=== PATIENT | male | born 1965 | race Caucasian/White ===

== ENCOUNTER 2016-07-18 12:21 | Emergency (ER) | payer BC ==
[2016-07-18 14:42] LABS: Hematocrit 44 % (42-52); Hemoglobin 14.8 g/dl (14.0-18.0); Mean Corpuscular HGB Conc 33 g/dl (31-36); Mean Corpuscular Hemoglobin 28 pg (27-31); Mean Corpuscular Volume 85 fL (80-94); Mean Platelet Volume 7 um3 (7.4-10.4); Red Blood Count 5.21 10^6/ul (4.0-5.4); Red Cell Distribution Width 14 % (10.5-15); White Blood Count 9.1 10^3/ul (3.5-10.8)
[2016-07-18 14:53] LABS: Albumin 4.1 g/dL (3.2-5.2); BUN/Creatinine Ratio 13.5 (8-20); EGFR African American 116.8 (>60); EGFR Non-African American 90.9 (>60); Globulin 2.7 g/dL (2-4); Potassium 4.3 mmol/L (3.5-5.0); Total Bilirubin 0.4 mg/dL (0.2-1.0); Total Protein 6.8 g/dL (6.4-8.9)
[2016-07-18 15:25] LABS: Carbamazepine 6.9 mcg/mL (4.0-12.0)
[2016-07-18 15:35] LABS: Urine Bilirubin Negative (Negative); Urine Glucose Negative (Negative); Urine Nitrite Negative (Negative)
[2016-07-18] MEDS ORDERED: carBAMazepine ER TAB(*) 200 MG PO ONE ×2 (16:27→17:58)
[2016-07-18] MEDS ORDERED: carBAMazepine TAB(*) 200 MG PO ONE (17:49)
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
[2016-07-18 20:58] VITALS: BP 134/89
--- NOTE | 2016-07-18 22:04 | ED ---
Johnnie Kay Aidan, scribed for Thor Mcginnis MD on 07/18/16 at 1555 . Neurological HPI - HPI Summary HPI Summary: 51 y/o male presents to the ED with a complaint of 4 acute, moderate episodes of blank staring with associated body shakes that occurred last night and one episode this morning. He does not recall the episodes and had a seizure while in the waiting room today. His reports that, about every 30 days or so, he has similar neurological episodes of talking gibberish, blank staring, arching his body, and on one occasion, behaving violently. Episodes typically last about 2-3 minutes and occur typically when he is in bed, however, the episode this morning occurred while the patient was up eating breakfast. Before this, his last similar episode occurred a month ago and before that he had one on April 25. Previously, he tested positive for lyme, was diagnosed with tick illness, and has a Hx of encephalopathy.Again, at 1743, the patient had another seizure while in the ED. - History of Current Complaint Chief Complaint: EDNeurologicalDeficit Stated Complaint: POSS SEIZURES Time Seen by Provider: 07/18/16 13:52 Hx Obtained From: Patient, Family/Stemmer Machine - Onset/Duration: Sudden Onset, Started weeks ago Timing: Intermittent Episodes Lasting: - 2-3 minutes Onset Severity: Moderate Current Severity: None Seizure Severity: Moderate Number of Seizures: 1 - 1 reported in waiting room; unclear as to whether other episodes were seziures Neurological Deficit Location: Generalized - see HPI for detail Pain Intensity: 0 Pain Scale Used: 0-10 Numeric Character: Other: - body tremors, blank staring, talking gibberish, 1 episode of violence Episode Lasting: Seconds/Minutes - 2-3 minutes Syncope Context: Witnessed - seizure and most episodes witnessed, Loss of Consciousness: Yes Frequency: Episodes x___ - many episodes, typically around 1 every 30 days or so , at least 3 previous episodes other than yesterday's episodes and today's Syncope Location: All Extremities Seizure Character: Generalized Aggravating: Nothing - unknown Alleviating: Nothing - unknown Associated Signs and Symptoms: Positive: Seizure - today x1 TPA Considered: No Similar Episode/Dx as: Diagnosed with tick illness and encephalopathy in past - Allergy/Home Medications Allergies/Adverse Reactions: Allergies Allergy/AdvReac Type Severity Reaction Status Date / Time No Known Allergies Allergy Verified 07/18/16 12:32 Home Medications: Home Medications carBAMazepine ER TAB(*) [TEGretol Xr TAB(*)] 200 mg PO BID 07/18/16 [History Confirmed 07/18/16] PMH/Surg Hx/FS Hx/Imm Hx Infectious Disease History: No Infectious Disease History: Denies: Traveled Outside the [place] in Last 30 Days - Family History Known Family History: Positive: Hypertension - Social History Occupation: Employed Full-time Lives: With Family Alcohol Use: None Substance Use Type: Reports: None Smoking Status (MU): Unknown if Ever Smoked Review of Systems Constitutional: Negative Eyes: Negative ENT: Negative Cardiovascular: Negative Respiratory: Negative Gastrointestinal: Negative Genitourinary: Negative Musculoskeletal: Negative Skin: Negative Neurological: Other - seizure x1, episodes of body tremors, blank staring, sometimes talking gibberish, arching his body, and behaving violently on 1 occassion Negative: Headache, Weakness, Paresthesia, Numbness, Syncope, Slurred Speech Psychological: Normal All Other Systems Reviewed And Are Negative: Yes Physical Exam Triage Information Reviewed: Yes Vital Signs On Initial Exam: Initial Vitals Temp Pulse Resp BP Pulse Ox 98.8 F 90 18 147/94 98 07/18/16 12:26 07/18/16 12:26 07/18/16 12:26 07/18/16 12:26 07/18/16 12:26 Vital Signs Reviewed: Yes Appearance: Positive: Well-Appearing, No Pain Distress Skin: Positive: Warm, Skin Color Reflects Adequate Perfusion, Dry Head/Face: Positive: Normal Head/Face Inspection Eyes: Positive: Normal ENT: Positive: Normal ENT inspection Neck: Positive: Supple, Nontender Respiratory/Lung Sounds: Positive: Clear to Auscultation, Breath Sounds Present Cardiovascular: Positive: RRR Abdomen Description: Positive: Nontender, Soft Bowel Sounds: Positive: Present Musculoskeletal: Positive: Normal Neurological: Positive: Normal, Sensory/Motor Intact, Alert, Oriented to Person Place, Time, CN Intact II-III, Reflexes Intact Psychiatric: Positive: Affect/Mood Appropriate Diagnostics - Vital Signs Vital Signs Temp Pulse Resp BP Pulse Ox 07/18/16 14:30 81 14 137/86 98 07/18/16 14:00 92 13 130/89 98 07/18/16 13:42 98.3 F 90 20 111/67 95 07/18/16 13:30 89 19 11167 94 07/18/16 13:28 90 17 96 07/18/16 13:27 117/71 07/18/16 12:26 98.8 F 90 18 147/94 98 - Laboratory Lab Results: Lab Results 07/18/16 07/18/16 07/18/16 Range/Units 13:40 13:40 13:40 WBC 9.1 (3.5-10.8) 10^3/ul RBC 5.21 (4.0-5.4) 10^6/ul Hgb 14.8 (14.0-18.0) g/dl Hct 44 (42-52) % MCV 85 (80-94) fL MCH 28 (27-31) pg MCHC 33 (31-36) g/dl RDW 14 (10.5-15) % Plt Count 193 (150-450) 10^3/ul MPV 7 L (7.4-10.4) um3 Neut % (Auto) 83.8 H (38-83) % Lymph % (Auto) 8.7 L (25-47) % [place] % (Auto) 7.3 (1-9) % Eos % (Auto) 0 (0-6) % Baso % (Auto) 0.2 (0-2) % Absolute Neuts (auto) 7.7 (1.5-7.7) 10^3/ul Absolute Lymphs (auto) 0.8 L (1.0-4.8) 10^3/ul Absolute Monos (auto) 0.7 (0-0.8) 10^3/ul Absolute Eos (auto) 0 (0-0.6) 10^3/ul Absolute Basos (auto) 0 (0-0.2) 10^3/ul Absolute Nucleated RBC 0.01 10^3/ul Nucleated RBC % 0.1 Sodium 129 L (133-145) mmol/L Potassium 4.3 (3.5-5.0) mmol/L Chloride 99 L (101-111) mmol/L Carbon Dioxide 22 (22-32) mmol/L Anion Gap 8 (2-11) mmol/L BUN 12 (6-24) mg/dL Creatinine 0.89 (0.67-1.17) mg/dL Est GFR ( Amer) 116.8 (>60) Est GFR (Non-Af Amer) 90.9 (>60) BUN/Creatinine Ratio 13.5 (8-20) Glucose 104 H (70-100) mg/dL Lactic Acid 1.8 (0.5-2.0) mmol/L Calcium 9.0 (8.6-10.3) mg/dL Magnesium 2.0 (1.9-2.7) mg/dL Total Bilirubin 0.40 (0.2-1.0) mg/dL AST 20 (13-39) U/L ALT 20 (7-52) U/L Alkaline Phosphatase 72 (34-104) U/L Total Protein 6.8 (6.4-8.9) g/dL Albumin 4.1 (3.2-5.2) g/dL Globulin 2.7 (2-4) g/dL Albumin/Globulin Ratio 1.5 (1-3) Urine Color Urine Appearance Urine pH (5-9) Ur Specific [place] (1.010-1.030) Urine Protein (Negative) Urine Ketones (Negative) Urine Blood (Negative) Urine Nitrate (Negative) Urine Bilirubin (Negative) Urine Urobilinogen (Negative) Ur Leukocyte Esterase (Negative) Urine Glucose (Negative) Carbamazepine 6.9 (4.0-12.0) mcg/mL 07/18/16 Range/Units 15:20 WBC (3.5-10.8) 10^3/ul RBC (4.0-5.4) 10^6/ul Hgb (14.0-18.0) g/dl Hct (42-52) % MCV (80-94) fL MCH (27-31) pg MCHC (31-36) g/dl RDW (10.5-15) % Plt Count (150-450) 10^3/ul MPV (7.4-10.4) um3 Neut % (Auto) (38-83) % Lymph % (Auto) (25-47) % [place] % (Auto) (1-9) % Eos % (Auto) (0-6) % Baso % (Auto) (0-2) % Absolute Neuts (auto) (1.5-7.7) 10^3/ul Absolute Lymphs (auto) (1.0-4.8) 10^3/ul Absolute Monos (auto) (0-0.8) 10^3/ul Absolute Eos (auto) (0-0.6) 10^3/ul Absolute Basos (auto) (0-0.2) 10^3/ul Absolute Nucleated RBC 10^3/ul Nucleated RBC % Sodium (133-145) mmol/L Potassium (3.5-5.0) mmol/L Chloride (101-111) mmol/L Carbon Dioxide (22-32) mmol/L Anion Gap (2-11) mmol/L BUN (6-24) mg/dL Creatinine (0.67-1.17) mg/dL Est GFR ( Amer) (>60) Est GFR (Non-Af Amer) (>60) BUN/Creatinine Ratio (8-20) Glucose (70-100) mg/dL Lactic Acid (0.5-2.0) mmol/L Calcium (8.6-10.3) mg/dL Magnesium (1.9-2.7) mg/dL Total Bilirubin (0.2-1.0) mg/dL AST (13-39) U/L ALT (7-52) U/L Alkaline Phosphatase (34-104) U/L Total Protein (6.4-8.9) g/dL Albumin (3.2-5.2) g/dL Globulin (2-4) g/dL Albumin/Globulin Ratio (1-3) Urine Color Yellow Urine Appearance Cloudy Urine pH 6.0 (5-9) Ur Specific [place] 1.019 (1.010-1.030) Urine Protein Negative (Negative) Urine Ketones Trace H (Negative) Urine Blood Negative (Negative) Urine Nitrate Negative (Negative) Urine Bilirubin Negative (Negative) Urine Urobilinogen Negative (Negative) Ur Leukocyte Esterase Negative (Negative) Urine Glucose Negative (Negative) Carbamazepine (4.0-12.0) mcg/mL Result Diagrams: 07/18/16 13:40 07/18/16 13:40 Lab Statement: Any lab studies that have been ordered have been reviewed, and results considered in the medical decision making process. NIH Scale - NIH Scale Level of Consciousness: Alert/Keenly Responsive Ask Patient the Month and His/Her Age: Both Correct Ask Pt to Open/Close Eyes and Blunger Machine Operator/Release Non-Paretic Hand: Both Correctly Best Gaze (Only Horizontal Eye Movement): Partial Gaze Palsy Visual Field Testing: No Visual Loss Facial Paresis-Pt to Smile & Close Eyes or Grimace Symmetry: Normal/Symmetrical Motor Function - Right Arm: No Drift-Holds 10 Seconds Motor Function - Left Arm: No Drift-Holds 10 Seconds Motor Function - Right Leg: No Drift-Holds 10 Seconds Motor Function - Left Leg: No Drift-Holds 10 Seconds Limb Ataxia-Must be out of Proportion to Weakness Present: Absent Sensory (Use Pinprick to Test Arms/Legs/Trunk/Face): Normal Best Language (Describe Picture, Name Items): No Aphasia Dysarthria (Read Several Words): Normal Extinction and Inattention: No Abnormality Total Score: 1 Course/Dx - Course Course Of Treatment: Dr. Montalvo saw him in the ED and wanted to increase his tegretol. The patient had another seizure just prior to D/C that I witnessed. He clearly had a short complex generalized seizure. We gave him more tegretol and monitored him for a few more hours. - Diagnoses Provider Diagnoses: Seizure Discharge - Discharge Plan Condition: Stable Disposition: HOME Discharge Disposition Comment: Take tegretal 400mg 2x daily. Patient Education Materials: Recurrent Seizures in Adults (ED) Referrals: No Primary Care Phys,NOPCP [Primary Care Provider] - The documentation as recorded by the Johnnie cannon Aidan accurately reflects the service I personally performed and the decisions made by me, Thor Mcginnis MD.
== END 2016-07-18 20:50 | disposition home or self-care (01) ==
LOC: ED 12:21
DX: R56.9 Unspecified convulsions (principal)
CPT/HCPCS: 36415; 80053; 80156; 81003; 83605; 83735; 85025; 99284; A9270-GY

== ENCOUNTER 2017-10-02 12:58 | Inpatient (IN) | payer BC ==
[2017-10-02] MEDS ORDERED: LORazepam INJ* 2 MG/ML 1 ML VIAL IV PRN (14:21)
[2017-10-02] MEDS ORDERED: diPHENhydraMINE PO* 25 MG PO PRN (14:21)
--- NOTE | 2017-10-02 14:35 | ADMNOTE ---
Subjective Date of Service: 10/02/17 Interval History: ADMISSION HISTORY AND PHYSICAL EXAM: Allergies Allergy/AdvReac Type Severity Reaction Status Date / Time No Known Allergies Allergy Verified 10/02/17 14:01 Home Medications Medication Instructions Recorded Confirmed Type carBAMazepine ER TAB(*) [TEGretol 200 mg PO BID 07/18/16 07/18/16 History Xr TAB(*)] Clonazepam 0.5 mg PO PRN 10/01/17 History Loratadine 10 mg PO DAILY 10/01/17 10/02/17 History Vimpat 200 mg PO QAM 10/01/17 10/02/17 History Vimpat 250 mg PO BEDTIME 10/01/17 10/02/17 History HPI: The patient has had seizures for about 1 1/2 years with several hospitalization for this, mostly in [place]. He never had status. He has been under th care of Dr. Rudolph and is being admitted to the EMU for evaluation for possible surgical tx. Family History: Findings - F of esophageal ca, M after a CVA. 1 brother A&W, 3 children, 1 with DM 1. Social History: Findings - Lives with his who is his SDM. 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 Never smoked, quit drinking any alcohol with dx of seizures. Never a heavy drinker. Past Medical History: Findings - Seizures Review of Systems - Review of Systems Constitutional Symptoms: Negative: Weight Gain, Weight Loss, Weakness, Fatigue, Fever, Night Sweats, Unexplained Falls, Other Dermatology: Positive: Normal HEENT: Positive: Normal Eyes: Positive: Normal Thyroid: Positive: Normal Pulmonary: Positive: Normal Cardiology: Positive: Normal Gastroenterology: Positive: Normal Genital - Urinary: Positive: Normal Genitourinary - Male: Negative: Prostatism, Erectile Dysfunction, Family Hx of Prostate Cancer, Other Musculoskeletal: Negative: Joint Pain, Joint Stiffness, Arthritis, Osteoporosis, Low Back Pain , Sciatica, Joint Deformities, Kyphoscoliosis, Other Endocrinology: Positive: Normal Hematologic/Lymphatic: Negative: Anemia, Easy Brusing, Hx Leukemia, Hx Lymphoma, Use of Anticoagulant, Use of Antiplatelet Drugs, Other Neurology: Positive: Hx of Seizures Psychiatry: Positive: Normal Allergic/Immunologic: Negative: Hx Anaphylaxis, Hx Angioedema, Hx Environmental, Hx Seasonal, Athsma, Hx HIV, Immunocompromise, Swollen Glands LymphNodes, Other Objective Active Medications: Diphenhydramine HCl (Benadryl Po*) 25 mg PO Q6H PRN PRN Reason: ITCHING Lorazepam (Ativan Inj*) 1 mg IV Q8H PRN PRN Reason: Generalized Tonic Clonic Seizu Non-Formulary Medication (Loratadine) 10 mg PO DAILY LANCE Non-Formulary Medication (Vimpat) 150 mg PO QAM LANCE Non-Formulary Medication (Vimpat) 150 mg PO BEDTIME LANCE Oxygen Devices in Use Now: None Appearance: Alert, sitting on the edge of his bed. In good spirits. Looks comfortable. Eyes: No Scleral Icterus Ears/Nose/Mouth/Throat: Clear Oropharnyx, Mucous Membranes Moist Neck: NL Appearance and Movements; NL JVP, No Thyroid Enlargement, Masses Respiratory: Symmetrical Chest Expansion and Respiratory Effort, Clear to Auscultation, Clear to Percussion Cardiovascular: NL Sounds; No Murmurs; No JVD, RRR, No Edema, - Abdominal: NL Sounds; No Tenderness; No Distention, No Hepatosplenomegaly, - Extremities: No Edema, No Clubbing, Cyanosis, - Skin: No Rash or Ulcers, No Nodules or Sclerosis, - Neurological: Alert and Oriented x 3, NL Sensation Assess/Plan/Problems-Billing Assessment: - Patient Problems (1) Seizures Current Visit: Yes Status: Acute Code(s): R56.9 - UNSPECIFIED CONVULSIONS SNOMED Code(s): 06396628 Comment: Admitted to EMU for evaluation for possible surgical tx. Discussed with Dr. Rudolph. Vimpat dose reduced approx. 50% from home dose. Further reductions depending on clinical course. (2) Allergic rhinitis Current Visit: Yes Status: Acute Code(s): J30.9 - ALLERGIC RHINITIS, UNSPECIFIED SNOMED Code(s): 97255137 Comment: Continue loratadine.
--- NOTE | 2017-10-02 15:55 | ADMNOTE ---
Admission Note HPI - HPI Handedness: right History of Present Illness: Ramon Hannah is a 52 year old man who began having probable seizures in August 2015. This occurred in the context of flu-like symptoms but no fever. He initially was noted to have episodes of odd behavior such as standing on the couch, being non-responsive to his and being unable to speak after wandering out onto their deck. He was initially taken to [facility] and had overnight monitoring in the ICU with EEG that was normal. He underwent LP, which was normal. He was discharged the following day and was fine for a month but then had an episode where his described him swiping at a notebook as though it was his phone. This was associated with him staring off and sweating. He had a temperature of 100F that night. That night, he had episodes of kicking and jerking in his sleep, speaking jibberish and agitated behavior such as crawling over his and onto their bedroom floor. He was again taken to [facility] and was confused while there. He was discharged after 3 days, but was still confused, and had an episode the following day of looking for their son in a closet. He was also paranoid at that time. They went to the ER in [place], [place] and spent 5 days in the hospital. This was October 2015. He was put on doxycycline for possible Lyme disease, which did not help these episodes. Through the course of the summer and fall of 2015, he received an extended course of antibiotics for possible Lyme disease. He was finally started on carbamazepine in April 2016 and episodes were less frequent, but still occurring. In May 2016 he had an episode of repetitive swallowing, jibberish speech and shaking associated with staring. He was changed to extended release carbamazepine. Due to further events in June 2016, he presented to the [facility] ER and was seen by Dr. Montalvo, who increased the dose of carbamazepine to 400mg BID with the suspicion that these could be frontal lobe seizures. He was then referred to me for further evaluation. Over time, the dose of carbamazepine was increased but then discontinued due to hyponatremia, photosensitivity and incomplete seizure control. He was then started on zonisamide but experienced weight loss, appetite loss and insomnia. He is now on Vimpat and the dose has been progressively increased to the current dose of 200mg QAM and 250mg QPM. He continues to experiences seizures every 4 to 5 weeks and if his does not given him clonazepam, he will tend to have another 1 to 2 seizures later in the day. His seizures occur almost exclusively out of sleep, and can happen overnight or when he naps. The last daytime seizure was in August 2016. He has not been able to drive because of the seizures, though a DMV form was recently completed detailing the nocturnal nature of his seizures. 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 His mood has changed since the onset of seizures and he does not tend to have as much interest in things like his hobbies of turkey hunting, but it's also more difficult to get there because he cannot drive. His short-term memory has been a bit worse since this started but it has not affected his work and his has not noticed this to a great degree. The last seizure occurred on 09/27 in the patient registration clerk hours and his gave him clonazepam. She videotaped one recently and he watched it. He states he was staring, wide-eyed, making repeated vocalizations and appeared stiff and shaking , but he could only see his upper body. It lasted less than a minute. He does not have any warning prior to seizures and does not really know when he's had one after the fact unless his tells him. Last week, he suddenly felt lightheaded and sweaty, like he might faint, but he did not tell his and he wondered if this could have been a prodrome to a seizure. Epilepsy Risk Factors: No h/o febrile seizures, normal developmental history. Isn't sure if there were complications during his mother's with him. No known major head injuries. No clear h/o [employer] infections but in his work up for these events he had an encephalitis panel in July 2016 which showed that he has potentially had prior infection with a [place] serogroup arbovirus at an undetermined time. CSF paraneoplastic panel was negative. Maternal grandfather had "spells", the details of which are unknown PNEA Risk Factors: None PMH/Surg Hx/FS Hx/Imm Hx Respiratory History: Reports: Hx Seasonal Allergies Musculoskeletal History: Denies: Hx Arthritis, Hx Osteoporosis Sensory History: Reports: Hx Contacts or Glasses Denies: Hx Hearing Aid Opthamlomology History: Reports: Hx Contacts or Glasses Neurological History: Reports: Hx Seizures Denies: Hx Developmental Delay - Surgical History Surgery Procedure, Year, and Place: Sinus surgery - 2002. [place] teeth removed - 1987. Vasectomy - 2004 Hx Anesthesia Reactions: No Infectious Disease History: No Infectious Disease History: Denies: Traveled Outside the [place] in Last 30 Days - Family History Known Family History: Positive: Hypertension Family History: father - cancer. mother - stroke. 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 MSK: no extremity deformities Derm: no rashes or lesions on visible skin Neurological Exam: Mental Status: Awake and alert. Oriented to person, place, and time. Fluent. Comprehension intact. Affect appropriate. Cranial Nerves: Visual daniels not tested. Versions were full and without nystagmus. Facial musculature symmetric. Hearing grossly intact to voice. Shoulder shrug was symmetric. Motor: Strength was grossly normal throughout. Pronator drift was absent. There were no abnormal movements. Sensory: Sensation not tested Coordination: Finger to nose intact. Reflexes: not tested. Gait: Not observed today. EMU Review of Systems Review of Systems: A 12 point review of systems was completed and significantly positive for: nothing. The remainder of the review was negative except as stated above in the HPI. EMU Diagnostics - Diagnostic Most Recent Vital Signs: Vital Signs: Temp Pulse Resp BP Pulse Ox 18 10/02/17 14:18 Lab Results: [place] CSF paraneoplastic panel negative Serum arbovirus panel showed possible prior infection with [place] serogroup Interim video-EEG long-term monitoring report: multiple outside routine EEGs and one 72 hour ambulatory EEG interpreted as normal. Radiology Impressions: MRI August 2015: few non-specific white matter abnormalities, though some are juxtacortical. PCP got MRI with contrast some time later which did not show evidence of enhancement. EMU Assessment/Plan - Assessment/Plan Assessment/Plan: 52 year old man with spells of wide-eyed staring, repetitive swallowing, speaking jibberish and sometimes abnormal movements since August 2015 which have been partially responsive to Vimpat. These are suspected to be focal seizures, temporal versus frontal in nature, given the report of agitated behavior. Etiology is unclear but not that a serum arbovirus panel showed evidence of prior infection with a [place] serogroup. MRI does not show a culprit lesion , though some of the non-specific white matter abnormalities are juxtacortical. Given that he has had incomplete control with 2 antiseizure medications ( carbamazepine and lacosamide) at reasonable doses/levels, he is being admitted for long-term monitoring both for characterization/localization and pre- surgical evaluation. The goal of the present long term care social worker video/EEG monitoring session is to characterize these events and to evaluate the EEG for epileptiform activity. Plan: Admit to the Medicine Service, Dr. Vargas attending with Dr Rudolph consulting detention video EEG monitoring for the purpose of characterizing events above Seizure precautions IV lorazepam as needed for GTC Home AED regimen: Vimpat 200mg QAM and 250mg QPM - decrease Vimpat to 150mg tonight and 100mg tomorrow morning. Continue on other prescribed home medications. * Check EKG given patient on stable dose of Vimpat
[2017-10-02] MEDS ORDERED: LaCOSAMide TAB* 150 MG TAB PO SCH (21:00)
--- NOTE | 2017-10-03 08:55 | EEG ---
GROUP HOME VIDEO/EEG MONITORING - Monitoring Monitoring Start Date: 10/02/17 Current Monitoring Session: 10/02/17 - 10/09/17 EEG Clinical Indication: This is a 52 year old man who began having events concerning for focal seizures in August 2015, following flu-like symptoms without high fever. Events occur almost exclusively out of sleep and consist of wide-eyed staring, repeated swallowing, speaking jibberish and sometimes abnormal movements (agitated movement). These are occurring about once every 4 to 5 weeks. They have been partially responsive to treatment with carbamazepine and now Vimpat, but continue to occur. Previous EEGs have been normal and MRI is normal. Long-term video EEG is undertaken in order to localize these events and evaluate for surgical candidacy. Introduction: INTRODUCTION: The EEG was monitored from 21 scalp electrodes. Nineteen electrodes consisted of the standard parasagittal, temporal and midline leads of the International 10 -20 system. In addition, special electrodes T1 and T2 were placed. EEG data were recorded on an [employer] system with simultaneous MPEG-4 digital video recording of patient behavior. EEG recording was in a monopolar montage with all electrodes referenced to FCz. Significant behavioral events were signaled by an event button, or putative electrical seizure events were detected by a computer program. All EEG data were reviewed in their entirety on a monitor with reconstruction of montages and adjustments of sensitivity and filtering. Simultaneous patient behavior was viewed on an adjacent monitor and correlated with the EEG. - Medications Active Medications: Diphenhydramine HCl (Benadryl Po*) 25 mg PO Q6H PRN PRN Reason: ITCHING Lacosamide (Vimpat) 150 mg PO BEDTIME [facility] Last Admin: 10/02/17 20:58 Dose: 150 mg Lacosamide (Vimpat Tab*) 100 mg PO QAM LANCE Loratadine (Claritin Tab(Nf)) 10 mg PO DAILY LANCE Lorazepam (Ativan Inj*) 1 mg IV Q8H PRN PRN Reason: Generalized Tonic Clonic Seizu - Description Background: The waking background showed appropriate organization with clearly defined anterior-posterior voltage and frequency gradients. There was a defined posterior dominant rhythm of 10 Hertz, which was symmetrical and showed normal reactivity. Anteriorly, there was the expected pattern of lower voltage and more irregular theta and beta rhythms. There was rare, polymorphic mixed frequency slowing in the right temporal region , maximal at F8 and T2, with intermixed sharp features which were not definitively epileptiform. The sleep background was appropriately organized with well-developed spindles and vertex waves indicative of stage 2 sleep. These sleep transients showed appropriate morphology and were bilaterally synchronous and symmetrical. Development of diffuse delta range frequencies with dropout of stage 2 architecture accompanied transition to slow wave sleep, and a lower voltage mixed frequency pattern associated with eye movements was consistent with REM sleep. Intericatal Epileptiform Activity: #01 10/02: Medications: lacosamide 150mg at HS and 100mg in AM There was rare, polymorphic mixed frequency slowing in the right temporal region , maximal at F8 and T2, with intermixed sharp features which were not definitively epileptiform. Background otherwise normal. No definitive discharges #02 10/03: Medications: lacosamide 75mg at HS, 50mg in AM Background the same with occasional polymorphic slowing in the right frontotemporal region. During sleep, there are occasional low voltage spikes which are bifrontally predominant but biased to the right and into the right temporal region. Unclear if these are low voltage discharges. There was significant artifact in T3 overnight and T1 came off around 03:30. No seizures #03 10/04: Medications: none after 50mg dose in AM Background the same with occasional polymorphic slowing in the right frontotemporal region. During sleep, there are occasional low voltage spikes which are bifrontally predominant but biased to the right and into the right temporal region. Unclear if these are low voltage discharges. Slept 5.5 to 6 hours #04 10/05: Medications: none Background same as previously described above. Sleep deprived 10/05 to 10/06 to 4 hours #05 10/06: Medications: none Background same as previously described above including occasional low voltage spikes in the frontal and right temporal region during sleep. #06 10/07: Medications: none Background same as previously described above including occasional low voltage spikes in the frontal and right temporal region during sleep. During sleep there was a single 3 second epoch of rhythmic, sharply contoured 3-4 Hz slowing in the right frontal/temporal region, maximal at FP2, F8 and T2/FT10. #07 10/08: Medications: Vimpat 250mg at HS and 200mg AM on 10/09 Background same as previously described above including occasional low voltage spikes in the frontal and right temporal region during sleep. Sometimes these seem to shift and show a predominance in the left temporal rather than right temporal region. Also noted to have a positive dipole in the occipital regions. Not clearly epileptiform. Ictal Activity: #01 10/02: No patient events, no seizures #02 10/03: No patient events, no seizures #03 10/04: No patient events, no seizures #04 10/05: No patient events, no seizures #05 10/06: No patient events, no seizures #06 10/07: No patient events, no seizures #07 10/08: No patient events, no seizures - Impression Impression: This is a mildly abnormal long-term video EEG session due to the presence of rare, polymorphic slowing in the right frontotemporal region with intermixed sharp contours which are not definitively epileptiform. These findings are suggestive of intermittent neuronal dysfunction underlying this region. During stage 2 sleep, there were low voltage spike waveforms as described above which were bifrontally predominant and often represented in the right temporal region as well, but sometimes shifted to the left temporal region. These were not definitively epileptiform and their significance is uncertain. The patient did not experience any of his typical events during this recording so the exact localization and characterization of these events remains uncertain.
[2017-10-03] MEDS: CMCS LoraTADine TAB(NF) 10 MG TAB PO SCH (08:59)
[2017-10-03] MEDS ORDERED: VIMPAT 150 MG PO SCH (09:00)
[2017-10-03] MEDS ORDERED: Lacosamide TAB* 100 MG TAB PO SCH (09:00)
--- NOTE | 2017-10-03 10:11 | PN ---
Epilepsy Service Progress Note Date of Service: 10/03/17 - Subjective No overnight events. Pt did not sleep very well, but has trouble sleeping at home as well. Feels weird having to call someone before he goes to the bathroom but understands the reason in terms of safety - Medications Active Medications: Diphenhydramine HCl (Benadryl Po*) 25 mg PO Q6H PRN PRN Reason: ITCHING Lacosamide (Vimpat Tab*) 75 mg PO BEDTIME ONE Stop: 10/03/17 21:01 Lacosamide (Vimpat Tab*) 50 mg PO 0900 ONE Stop: 10/04/17 09:01 Loratadine (Claritin Tab(Nf)) 10 mg PO DAILY LANCE Last Admin: 10/03/17 08:59 Dose: 10 mg Lorazepam (Ativan Inj*) 1 mg IV Q8H PRN PRN Reason: Generalized Tonic Clonic Seizu EMU Diagnostics - Diagnostic Most Recent Vital Signs: Vital Signs: Temp Pulse Resp BP Pulse Ox 97.8 F 67 18 121/73 99 10/03/17 07:48 10/03/17 07:48 10/03/17 08:00 10/03/17 07:48 10/03/17 07:48 Interim video-EEG long-term monitoring report: #01 10/02: PDR 10. Background shows normal organization. At the beginning of the recording, there was occasional polymorphic slowing in the right frontotemporal region with some sharp contours which were not definitively epileptiform. No discharges, no seizures EMU Exam - Exam Physical/Neurological Exam: Physical Exam: General: Well appearing in no acute distress. MSK: no extremity deformities Derm: no rashes or lesions on visible skin Neurological Exam: Mental Status: Awake and alert. Oriented to person, place, and time. Fluent. Comprehension intact. Affect appropriate. Cranial Nerves: Visual daniels not tested. Spontaneous versions were full and without nystagmus. Facial musculature symmetric. Hearing grossly intact to voice. Shoulder shrug was symmetric. Motor: Strength was grossly normal throughout. Pronator drift was absent. There were no abnormal movements. Sensory: Sensation not tested Coordination: Finger to nose intact. Reflexes: not tested. Gait: Not observed today. EMU Progress Note Assessment/P - Assessment/Plan Assessment: 52 year old man with onset of probable focal seizures in August 2015, refractory to treatment with carbamazepine followed by Vimpat. MRI is non-lesional. He continues to experience events every 4 to 5 weeks of wide-eyed staring, repetitive swallowing, speaking jibberish and sometimes agitated movements. These are primarily nocturnal. Long-term video EEG undertaken in order to characterize these as epileptic and evaluate for surgical candidacy. No typical events recorded yet. Plan: * Continue manager long term care video EEG monitoring to capture typical episodes * Seizure precautions * lorazepam 1mg IV prn GTC * reduce Vimpat to 75mg tonight, 50mg tomorrow AM and then d/c * continue other home meds * reinforced to call for nursing before ambulating * EKG to be completed
--- NOTE | 2017-10-03 10:11 | PN ---
Subjective Date of Service: 10/03/17 Interval History: Pt is feeling well. No seizures overnight per nursing. He denies any pain, SOB or issues with bowel/bladder. Currently we are awaiting seizure activity. Objective Active Medications: Diphenhydramine HCl (Benadryl Po*) 25 mg PO Q6H PRN PRN Reason: ITCHING Lacosamide (Vimpat Tab*) 75 mg PO BEDTIME ONE Stop: 10/03/17 21:01 Lacosamide (Vimpat Tab*) 50 mg PO 0900 ONE Stop: 10/04/17 09:01 Loratadine (Claritin Tab(Nf)) 10 mg PO DAILY LANCE Last Admin: 10/03/17 08:59 Dose: 10 mg Lorazepam (Ativan Inj*) 1 mg IV Q8H PRN PRN Reason: Generalized Tonic Clonic Seizu Vital Signs - 8 hr 10/03/17 10/03/17 07:48 08:00 Temperature 97.8 F Pulse Rate 67 Respiratory 18 Rate Blood Pressure 121/73 (mmHg) O2 Sat by Pulse 99 Oximetry Oxygen Devices in Use Now: None Appearance: Middle aged male sitting up on a couch, using his iPad, NAD Eyes: No Scleral Icterus Ears/Nose/Mouth/Throat: Mucous Membranes Moist Respiratory: Symmetrical Chest Expansion and Respiratory Effort, Clear to Auscultation Cardiovascular: NL Sounds; No Murmurs; No JVD, RRR, No Edema Abdominal: NL Sounds; No Tenderness; No Distention Extremities: No Clubbing, Cyanosis Skin: No Nodules or Sclerosis Neurological: Alert and Oriented x 3 Assess/Plan/Problems-Billing Mr Hannah is a 52 yo M who has a 2 year history of spells that are comprised of wide eyed starring, repetitive swallowing, speaking jibberish and sometimes abnormal movements who was admitted to the EMU for both characterization/ localization and pre-surgical evaluation. - Patient Problems (1) Seizures Current Visit: Yes Status: Acute Code(s): R56.9 - UNSPECIFIED CONVULSIONS SNOMED Code(s): 06134390 Comment: Vimpat dose to be reduced further; 75mg tonight and 50mg tomorrow AM then stop. Await seizure activity. PRN ativan available for generalized tonic clonic seizure activity. No issues to this point per nursing. (2) Allergic rhinitis Current Visit: Yes Status: Acute Code(s): J30.9 - ALLERGIC RHINITIS, UNSPECIFIED SNOMED Code(s): 54254494 Comment: Continue loratadine. (3) DVT prophylaxis Current Visit: Yes Status: Acute Code(s): [id number] - SNOMED Code(s): 542039801 Comment: ambulation (4) Full code status Current Visit: Yes Status: Acute Code(s): Z78.9 - OTHER SPECIFIED HEALTH STATUS SNOMED Code(s): 606609342
[2017-10-03] MEDS ORDERED: Lacosamide TAB* 50 MG TAB PO ONE (21:00)
[2017-10-04] MEDS ORDERED: Ibuprofen TAB* 400 MG PO PRN (08:13)
[2017-10-04] MEDS ORDERED: Acetaminophen TAB* 325 MG PO PRN (08:14)
--- NOTE | 2017-10-04 08:16 | PN ---
Subjective Date of Service: 10/04/17 Interval History: No seizures overnight. Ramon is feeling ok this AM. He states his back is a little sore from just sitting on the couch or in the bed. He states he would ordinarily take ibuprofen for the discomfort. He has no other complaints. Objective Active Medications: Diphenhydramine HCl (Benadryl Po*) 25 mg PO Q6H PRN PRN Reason: ITCHING Ibuprofen (Motrin Tab*) 400 mg PO Q6H PRN PRN Reason: PAIN Lacosamide (Vimpat Tab*) 50 mg PO 0900 ONE Stop: 10/04/17 09:01 Loratadine (Claritin Tab(Nf)) 10 mg PO DAILY LANCE Last Admin: 10/03/17 08:59 Dose: 10 mg Lorazepam (Ativan Inj*) 1 mg IV Q8H PRN PRN Reason: Generalized Tonic Clonic Seizu Vital Signs - 8 hr 10/04/17 07:56 Temperature 98.0 F Pulse Rate 76 Blood Pressure 124/72 (mmHg) O2 Sat by Pulse 99 Oximetry Oxygen Devices in Use Now: None Appearance: Middle aged male sitting on the couch eating breakfast, NAD Eyes: No Scleral Icterus Ears/Nose/Mouth/Throat: Mucous Membranes Moist Respiratory: Symmetrical Chest Expansion and Respiratory Effort, Clear to Auscultation Cardiovascular: NL Sounds; No Murmurs; No JVD, RRR, No Edema Abdominal: NL Sounds; No Tenderness; No Distention Extremities: No Clubbing, Cyanosis Skin: No Nodules or Sclerosis Neurological: Alert and Oriented x 3 Assess/Plan/Problems-Billing Mr Hannah is a 52 yo M who has a 2 year history of spells that are comprised of wide eyed starring, repetitive swallowing, speaking jibberish and sometimes abnormal movements who was admitted to the EMU for both characterization/ localization and pre-surgical evaluation. - Patient Problems (1) Seizures Current Visit: Yes Status: Acute Code(s): R56.9 - UNSPECIFIED CONVULSIONS SNOMED Code(s): 66599726 Comment: Pt will receive his last dose of vimpat this AM then be off. Await seizure activity. PRN ativan available for GTC. No isuses per nursing. (2) Allergic rhinitis Current Visit: Yes Status: Acute Code(s): J30.9 - ALLERGIC RHINITIS, UNSPECIFIED SNOMED Code(s): 27713759 Comment: Continue loratadine. (3) DVT prophylaxis Current Visit: Yes Status: Acute Code(s): [id number] - SNOMED Code(s): 743042862 Comment: ambulation (4) Full code status Current Visit: Yes Status: Acute Code(s): Z78.9 - OTHER SPECIFIED HEALTH STATUS SNOMED Code(s): 276045713
[2017-10-04] MEDS: CMCS LoraTADine TAB(NF) 10 MG TAB PO SCH (08:50)
[2017-10-04] MEDS ORDERED: Lacosamide TAB* 50 MG TAB PO ONE (09:00)
--- NOTE | 2017-10-04 11:56 | PN ---
Epilepsy Service Progress Note Date of Service: 10/04/17 - Subjective No overnight events. He had a hard time falling back to sleep after waking around 3:30 and didn't get back to sleep till almost 5:00. Says this can happen at home as well. Anxious to have a seizure. Got last dose of Vimpat this AM. He has some back pain today - Medications Active Medications: Acetaminophen (Tylenol Tab*) 650 mg PO Q4H PRN PRN Reason: PAIN Diphenhydramine HCl (Benadryl Po*) 25 mg PO Q6H PRN PRN Reason: ITCHING Ibuprofen (Motrin Tab*) 400 mg PO Q6H PRN PRN Reason: PAIN Last Admin: 10/04/17 08:48 Dose: 400 mg Loratadine (Claritin Tab(Nf)) 10 mg PO DAILY LANCE Last Admin: 10/04/17 08:50 Dose: 10 mg Lorazepam (Ativan Inj*) 1 mg IV Q8H PRN PRN Reason: Generalized Tonic Clonic Seizu EMU Diagnostics - Diagnostic Most Recent Vital Signs: Vital Signs: Temp Pulse Resp BP Pulse Ox 98.0 F 76 16 124/72 99 10/04/17 07:56 10/04/17 07:56 10/04/17 09:35 10/04/17 07:56 10/04/17 07:56 EKG normal Interim video-EEG long-term monitoring report: #01 10/02: PDR 10. Background shows normal organization. At the beginning of the recording, there was occasional polymorphic slowing in the right frontotemporal region with some sharp contours which were not definitively epileptiform. No discharges, no seizures #02 10/03: Background the same with occasional polymorphic slowing in the right frontotemporal region. During sleep, there are occasional low voltage spikes which are bifrontally predominant but biased to the right and into the right temporal region. Unclear if these are low voltage discharges. There was significant artifact in T3 overnight and T1 came off around 03:30. No seizures EMU Exam - Exam Physical/Neurological Exam: Physical Exam: General: Well appearing in no acute distress. MSK: no extremity deformities Derm: no rashes or lesions on visible skin Neurological Exam: Mental Status: Awake and alert. Oriented to person, place, and time. Fluent. Comprehension intact. Affect appropriate. Cranial Nerves: Visual daniels not tested. Spontaneous versions were full and without nystagmus. Facial musculature symmetric. Hearing grossly intact to voice. Shoulder shrug was symmetric. Motor: Strength was grossly normal throughout. Pronator drift was absent. There were no abnormal movements. Sensory: Sensation not tested Coordination: Finger to nose intact. Reflexes: not tested. Gait: Not observed today. EMU Progress Note Assessment/P - Assessment/Plan Assessment: 52 year old man with onset of probable focal seizures in August 2015, refractory to treatment with carbamazepine followed by Vimpat. MRI is non-lesional. He continues to experience events every 4 to 5 weeks of wide-eyed staring, repetitive swallowing, speaking jibberish and sometimes agitated movements. These are primarily nocturnal. Long-term video EEG undertaken in order to characterize these as epileptic and evaluate for surgical candidacy. No typical events recorded yet. Plan: * Continue intermodal dispatcher video EEG monitoring to capture typical episodes * Seizure precautions * lorazepam 1mg IV prn GTC * d/c Vimpat after 50mg dose this AM * sleep deprive to 4 hours tonight. Pt will likely stay up late, get up normal time. * continue other home meds * ibuprofen and/or Tylenol prn back pain. Ok to walk around room with nursing present * EKG done, normal
[2017-10-05] MEDS: CMCS LoraTADine TAB(NF) 10 MG TAB PO SCH (09:49)
--- NOTE | 2017-10-05 12:24 | PN ---
Epilepsy Service Progress Note Date of Service: 10/05/17 - Subjective No overnight events. Patient was unfortunately not properly sleep-deprived last night and got between 5.5 and 6 hours of sleep. He states he feels "goofy" but thinks this might be due to coming off Vimpat. Asks if he still needs to let someone know when he needs to use the bathroom. His sent him the video of one of his recent seizures. I reviewed this. In it, he was lying in the prone position on their bed, eyes wide open, face turned toward the right and up slightly, right arm only visible and was flexed under his body. He appeared rigid and had low amplitude somewhat irregular shaking. Afterward, he took some deep breaths with a slight snort/snoring quality and began to close his eyes. He was not responsive to his calling his name. - Medications Active Medications: Acetaminophen (Tylenol Tab*) 650 mg PO Q4H PRN PRN Reason: PAIN Diphenhydramine HCl (Benadryl Po*) 25 mg PO Q6H PRN PRN Reason: ITCHING Ibuprofen (Motrin Tab*) 400 mg PO Q6H PRN PRN Reason: PAIN Last Admin: 10/04/17 08:48 Dose: 400 mg Loratadine (Claritin Tab(Nf)) 10 mg PO DAILY LANCE Last Admin: 10/05/17 09:49 Dose: 10 mg Lorazepam (Ativan Inj*) 1 mg IV Q8H PRN PRN Reason: Generalized Tonic Clonic Seizu EMU Diagnostics - Diagnostic Most Recent Vital Signs: Vital Signs: Temp Pulse Resp BP Pulse Ox 97.3 F 79 18 117/73 98 10/04/17 19:10 10/05/17 07:53 10/05/17 10:59 10/05/17 07:53 10/05/17 07:53 Interim video-EEG long-term monitoring report: #01 10/02: PDR 10. Background shows normal organization. At the beginning of the recording, there was occasional polymorphic slowing in the right frontotemporal region with some sharp contours which were not definitively epileptiform. No discharges, no seizures #02 10/03: Background the same with occasional polymorphic slowing in the right frontotemporal region. During sleep, there are occasional low voltage spikes which are bifrontally predominant but biased to the right and into the right temporal region. Unclear if these are low voltage discharges. There was significant artifact in T3 overnight and T1 came off around 03:30. No seizures #03 10/04: Background same as previously described with occasional low voltage spike waveforms noted during sleep, not clear if epileptiform in nature. No seizures, no patient events. Patient slept about 5.5 to 6 hours. EMU Exam - Exam Physical/Neurological Exam: Physical Exam: General: Well appearing in no acute distress. MSK: no extremity deformities Derm: no rashes or lesions on visible skin Neurological Exam: Mental Status: Awake and alert. Oriented to person, place, and time. Fluent. Comprehension intact. Affect appropriate. Cranial Nerves: Visual daniels not tested. Spontaneous versions were full and without nystagmus. Facial musculature symmetric. Hearing grossly intact to voice. Shoulder shrug was symmetric. Motor: Strength was grossly normal throughout. Pronator drift was absent. There were no abnormal movements. Sensory: Sensation to LT intact Coordination: Finger to nose intact. Reflexes: 2+ throughout Gait: Not observed today. EMU Progress Note Assessment/P - Assessment/Plan Assessment: 52 year old man with onset of probable focal seizures in August 2015, refractory to treatment with carbamazepine followed by Vimpat. MRI is non-lesional. He continues to experience events every 4 to 5 weeks of wide-eyed staring, repetitive swallowing, speaking jibberish and sometimes agitated movements. These are primarily nocturnal. Long-term video EEG undertaken in order to characterize these as epileptic and evaluate for surgical candidacy. No typical events recorded yet. Attempted sleep deprivation 10/04-10/05 but pt got between 5.5 and 6 hours of sleep. Discussed with day shift importance of this order and need for nursing to wake him after 4 hours of sleep tonight. This will be passed on to group leader wafer polishing. Plan: * Continue equipment operator intermodal yard video EEG monitoring to capture typical episodes * Seizure precautions * lorazepam 1mg IV prn GTC * Vimpat d/c'd after AM dose on 10/04 * sleep deprive to 4 hours tonight and nursing needs to assist patient to wake up after the 4 hour interval. * continue other home meds * ibuprofen and/or Tylenol prn back pain. Ok to walk around room with nursing present * Reinforced need to call when needs to use bathroom for safety reasons * EKG done, normal
--- NOTE | 2017-10-05 15:57 | PN ---
Subjective Date of Service: 10/05/17 Interval History: Pt is feeling ok. He got about 5.5-6hr of sleep last night (he was supposed to get only 4hr of sleep). No seizure events overnight. His back pain is resolved. Objective Active Medications: Acetaminophen (Tylenol Tab*) 650 mg PO Q4H PRN PRN Reason: PAIN Diphenhydramine HCl (Benadryl Po*) 25 mg PO Q6H PRN PRN Reason: ITCHING Ibuprofen (Motrin Tab*) 400 mg PO Q6H PRN PRN Reason: PAIN Last Admin: 10/04/17 08:48 Dose: 400 mg Loratadine (Claritin Tab(Nf)) 10 mg PO DAILY LANCE Last Admin: 10/05/17 09:49 Dose: 10 mg Lorazepam (Ativan Inj*) 1 mg IV Q8H PRN PRN Reason: Generalized Tonic Clonic Seizu Vital Signs - 8 hr 10/05/17 10/05/17 10/05/17 07:53 09:54 10:59 Pulse Rate 79 Respiratory 18 18 Rate Blood Pressure 117/73 (mmHg) O2 Sat by Pulse 98 Oximetry Oxygen Devices in Use Now: None Appearance: Middle aged male sitting up on the couch, NAD Eyes: No Scleral Icterus Ears/Nose/Mouth/Throat: Mucous Membranes Moist Respiratory: Symmetrical Chest Expansion and Respiratory Effort, Clear to Auscultation Cardiovascular: NL Sounds; No Murmurs; No JVD, RRR, No Edema Abdominal: NL Sounds; No Tenderness; No Distention Extremities: No Clubbing, Cyanosis Skin: No Nodules or Sclerosis Neurological: Alert and Oriented x 3 Assess/Plan/Problems-Billing Assessment: 52 year old man with onset of probable focal seizures in August 2015, refractory to treatment with carbamazepine followed by Vimpat. MRI is non-lesional. He continues to experience events every 4 to 5 weeks of wide-eyed staring, repetitive swallowing, speaking jibberish and sometimes agitated movements. These are primarily nocturnal. Long-term video EEG undertaken in order to characterize these as epileptic and evaluate for surgical candidacy. No typical events recorded yet. Attempted sleep deprivation 10/04-10/05 but pt got between 5.5 and 6 hours of sleep. Discussed with day shift importance of this order and need for nursing to wake him after 4 hours of sleep tonight. This will be passed on to music professor. Plan: * Continue long term care administrator video EEG monitoring to capture typical episodes * Seizure precautions * lorazepam 1mg IV prn GTC * Vimpat d/c'd after AM dose on 10/04 * sleep deprive to 4 hours tonight and nursing needs to assist patient to wake up after the 4 hour interval. * continue other home meds * ibuprofen and/or Tylenol prn back pain. Ok to walk around room with nursing present * Reinforced need to call when needs to use bathroom for safety reasons * EKG done, normal - Patient Problems (1) Seizures Current Visit: Yes Status: Acute Code(s): R56.9 - UNSPECIFIED CONVULSIONS SNOMED Code(s): 07336762 Comment: No seizures overnight. He was not properly sleep deprived. He is off vimpat at this time. Await seizure activity. Attempt to sleep deprive tonight. (2) Allergic rhinitis Current Visit: Yes Status: Acute Code(s): J30.9 - ALLERGIC RHINITIS, UNSPECIFIED SNOMED Code(s): 00237753 Comment: Continue loratadine. (3) DVT prophylaxis Current Visit: Yes Status: Acute Code(s): IHW5584 - SNOMED Code(s): 880765417 Comment: ambulation (4) Full code status Current Visit: Yes Status: Acute Code(s): Z78.9 - OTHER SPECIFIED HEALTH STATUS SNOMED Code(s): 058553688
[2017-10-06] MEDS: CMCS LoraTADine TAB(NF) 10 MG TAB PO SCH (09:24)
--- NOTE | 2017-10-06 12:19 | PN ---
Epilepsy Service Progress Note Date of Service: 10/06/17 - Subjective No overnight events. Patient successfully sleep deprived to 4 hours overnight. Feels tired today but otherwise feels ok. Tells me that on Thursday, 10/04 at 4: 18pm he felt clammy and hot, which is something he's had for years. He didn't press the button because he figured it isn't anything related, but tells me today in case I want to go back and take a look at it. - Medications Active Medications: Acetaminophen (Tylenol Tab*) 650 mg PO Q4H PRN PRN Reason: PAIN Diphenhydramine HCl (Benadryl Po*) 25 mg PO Q6H PRN PRN Reason: ITCHING Ibuprofen (Motrin Tab*) 400 mg PO Q6H PRN PRN Reason: PAIN Last Admin: 10/04/17 08:48 Dose: 400 mg Loratadine (Claritin Tab(Nf)) 10 mg PO DAILY LANCE Last Admin: 10/06/17 09:24 Dose: 10 mg Lorazepam (Ativan Inj*) 1 mg IV Q8H PRN PRN Reason: Generalized Tonic Clonic Seizu EMU Diagnostics - Diagnostic Most Recent Vital Signs: Vital Signs: Temp Pulse Resp BP Pulse Ox 98.6 F 88 18 124/88 100 10/06/17 07:35 10/06/17 07:35 10/06/17 08:00 10/06/17 07:35 10/06/17 07:35 Interim video-EEG long-term monitoring report: #01 10/02: PDR 10. Background shows normal organization. At the beginning of the recording, there was occasional polymorphic slowing in the right frontotemporal region with some sharp contours which were not definitively epileptiform. No discharges, no seizures #02 10/03: Background the same with occasional polymorphic slowing in the right frontotemporal region. During sleep, there are occasional low voltage spikes which are bifrontally predominant but biased to the right and into the right temporal region. Unclear if these are low voltage discharges. There was significant artifact in T3 overnight and T1 came off around 03:30. No seizures #03 10/04: Background same as previously described with occasional low voltage spike waveforms noted during sleep, not clear if epileptiform in nature. No seizures, no patient events. Patient slept about 5.5 to 6 hours. #04 10/05: Background same as previously described with occasional low voltage spike waveforms during sleep, not clear if epileptiform. Occasional polymorphic slowing R temporal. Sleep deprived to 4 hours. EMU Exam - Exam Physical/Neurological Exam: Physical Exam: General: Well appearing in no acute distress. MSK: no extremity deformities Derm: no rashes or lesions on visible skin Neurological Exam: Mental Status: Awake and alert. Oriented to person, place, and time. Fluent. Comprehension intact. Affect appropriate. Cranial Nerves: Visual daniels not tested. Spontaneous versions were full and without nystagmus. Facial musculature symmetric. Hearing grossly intact to voice. Shoulder shrug was symmetric. Motor: Strength was grossly normal throughout. Pronator drift was absent. There were no abnormal movements. Sensory: Sensation to LT intact Coordination: Finger to nose intact. Reflexes: 2+ throughout Gait: Not observed today. EMU Progress Note Assessment/P - Assessment/Plan Assessment: 52 year old man with onset of probable focal seizures in August 2015, refractory to treatment with carbamazepine followed by Vimpat. MRI is non-lesional. He continues to experience events every 4 to 5 weeks of wide-eyed staring, repetitive swallowing, speaking jibberish and sometimes agitated movements. These are primarily nocturnal. Long-term video EEG undertaken in order to characterize these as epileptic and evaluate for surgical candidacy. No typical events recorded yet. Sleep deprived 10/05-10/06 to 4 hours. Plan: * Continue terminal clerk video EEG monitoring to capture typical episodes * Seizure precautions * lorazepam 1mg IV prn GTC * Vimpat d/c'd after AM dose on 10/04 * no naps today but may sleep normally tonight * continue other home meds * ibuprofen and/or Tylenol prn back pain. Ok to walk around room with nursing present
--- NOTE | 2017-10-06 16:21 | PN ---
Subjective Date of Service: 10/06/17 Interval History: Pt is feeling well. He is tired today after getting only 4hr of sleep last night. He had no overnight events. He denies any pain or other symptoms. Objective Active Medications: Acetaminophen (Tylenol Tab*) 650 mg PO Q4H PRN PRN Reason: PAIN Diphenhydramine HCl (Benadryl Po*) 25 mg PO Q6H PRN PRN Reason: ITCHING Ibuprofen (Motrin Tab*) 400 mg PO Q6H PRN PRN Reason: PAIN Last Admin: 10/04/17 08:48 Dose: 400 mg Loratadine (Claritin Tab(Nf)) 10 mg PO DAILY LANCE Last Admin: 10/06/17 09:24 Dose: 10 mg Lorazepam (Ativan Inj*) 1 mg IV Q8H PRN PRN Reason: Generalized Tonic Clonic Seizu Oxygen Devices in Use Now: None Appearance: Middle aged male sitting on the couch, NAD Eyes: No Scleral Icterus Ears/Nose/Mouth/Throat: Mucous Membranes Moist Respiratory: Symmetrical Chest Expansion and Respiratory Effort, Clear to Auscultation Cardiovascular: NL Sounds; No Murmurs; No JVD, RRR, No Edema Abdominal: NL Sounds; No Tenderness; No Distention Extremities: No Clubbing, Cyanosis Skin: No Nodules or Sclerosis Neurological: Alert and Oriented x 3 Assess/Plan/Problems-Billing Assessment: 52 year old man with onset of probable focal seizures in August 2015, refractory to treatment with carbamazepine followed by Vimpat. MRI is non-lesional. He continues to experience events every 4 to 5 weeks of wide-eyed staring, repetitive swallowing, speaking jibberish and sometimes agitated movements. These are primarily nocturnal. Long-term video EEG undertaken in order to characterize these as epileptic and evaluate for surgical candidacy. No typical events recorded yet. Sleep deprived 10/05-10/06 to 4 hours. Plan: * Continue [facility] video EEG monitoring to capture typical episodes * Seizure precautions * lorazepam 1mg IV prn GTC * Vimpat d/c'd after AM dose on 10/04 * no naps today but may sleep normally tonight * continue other home meds * ibuprofen and/or Tylenol prn back pain. Ok to walk around room with nursing present - Patient Problems (1) Seizures Current Visit: Yes Status: Acute Code(s): R56.9 - UNSPECIFIED CONVULSIONS SNOMED Code(s): 42502596 Comment: No seizures overnight. No sleep deprivation tonight. Continue to monitor on EEG. (2) Allergic rhinitis Current Visit: Yes Status: Acute Code(s): J30.9 - ALLERGIC RHINITIS, UNSPECIFIED SNOMED Code(s): 74438106 Comment: Continue loratadine. (3) DVT prophylaxis Current Visit: Yes Status: Acute Code(s): [id number] - SNOMED Code(s): 308764601 Comment: ambulation (4) Full code status Current Visit: Yes Status: Acute Code(s): Z78.9 - OTHER SPECIFIED HEALTH STATUS SNOMED Code(s): 788848055
[2017-10-07] MEDS: CMCS LoraTADine TAB(NF) 10 MG TAB PO SCH (09:05)
--- NOTE | 2017-10-07 12:13 | PN ---
Epilepsy Service Progress Note Date of Service: 10/07/17 - Subjective No overnight events. Patient has not experienced any seizures but remains in good spirits. No complaints or concerns regarding the current admission but continues to have questions surrounding his condition, why it started, etc. - Medications Active Medications: Acetaminophen (Tylenol Tab*) 650 mg PO Q4H PRN PRN Reason: PAIN Diphenhydramine HCl (Benadryl Po*) 25 mg PO Q6H PRN PRN Reason: ITCHING Ibuprofen (Motrin Tab*) 400 mg PO Q6H PRN PRN Reason: PAIN Last Admin: 10/04/17 08:48 Dose: 400 mg Loratadine (Claritin Tab(Nf)) 10 mg PO DAILY LANCE Last Admin: 10/07/17 09:05 Dose: 10 mg Lorazepam (Ativan Inj*) 1 mg IV Q8H PRN PRN Reason: Generalized Tonic Clonic Seizu EMU Diagnostics - Diagnostic Most Recent Vital Signs: Vital Signs: Temp Pulse Resp BP Pulse Ox 97.8 F 108 18 129/76 100 10/07/17 07:28 10/07/17 07:28 10/07/17 08:00 10/07/17 07:28 10/07/17 07:28 Interim video-EEG long-term monitoring report: #01 10/02: PDR 10. Background shows normal organization. At the beginning of the recording, there was occasional polymorphic slowing in the right frontotemporal region with some sharp contours which were not definitively epileptiform. No discharges, no seizures #02 10/03: Background the same with occasional polymorphic slowing in the right frontotemporal region. During sleep, there are occasional low voltage spikes which are bifrontally predominant but biased to the right and into the right temporal region. Unclear if these are low voltage discharges. There was significant artifact in T3 overnight and T1 came off around 03:30. No seizures #03 10/04: Background same as previously described with occasional low voltage spike waveforms noted during sleep, not clear if epileptiform in nature. No seizures, no patient events. Patient slept about 5.5 to 6 hours. #04 10/05: Background same as previously described with occasional low voltage spike waveforms during sleep, not clear if epileptiform. Occasional polymorphic slowing R temporal. Sleep deprived to 4 hours. #05 10/06: Background same as previously described with occasional low voltage spike waveforms during sleep which are maximal in the bifrontal and right frontotemporal region. No events, no seizures. Nursing noted some myoclonus, did not press button, no EEG correlate. EMU Exam - Exam Physical/Neurological Exam: Physical Exam: General: Well appearing in no acute distress. MSK: no extremity deformities Derm: no rashes or lesions on visible skin Neurological Exam: Mental Status: Awake and alert. Oriented to person, place, and time. Fluent. Comprehension intact. Affect appropriate. Cranial Nerves: Visual daniels not tested. Spontaneous versions were full and without nystagmus. Facial musculature symmetric. Hearing grossly intact to voice. Shoulder shrug was symmetric. Motor: Strength was grossly normal throughout. Pronator drift was absent. There were no abnormal movements. Sensory: Sensation to LT intact Coordination: Finger to nose intact. Reflexes: not retested Gait: Not observed today. EMU Progress Note Assessment/P - Assessment/Plan Assessment: 52 year old man with onset of probable focal seizures in August 2015, refractory to treatment with carbamazepine followed by Vimpat. MRI is non-lesional. He continues to experience events every 4 to 5 weeks of wide-eyed staring, repetitive swallowing, speaking jibberish and sometimes agitated movements. These are primarily nocturnal. Long-term video EEG undertaken in order to characterize these as epileptic and evaluate for surgical candidacy. No typical events recorded yet. Sleep deprived 10/05-10/06 to 4 hours. Plan: * Continue vermin exterminator video EEG monitoring to capture typical episodes * Seizure precautions * lorazepam 1mg IV prn GTC * Vimpat d/c'd after AM dose on 10/04 * sleep deprive tonight to 3 hours. Discussed timing with patient and he will try to sleep from 3 to 6am since his seizures often happen between 4 and 5:30am , out of sleep. * continue other home meds * ibuprofen and/or Tylenol prn back pain. Ok to walk around room with nursing present * Plan to restart home dose Vimpat tomorrow night if no events for discharge Monday 10/09.
--- NOTE | 2017-10-07 15:20 | PN ---
Subjective Date of Service: 10/07/17 Interval History: No overnight events. No seizure activity. No complaints. He feels good. Watching movies on ipad. Family History: Findings - F of esophageal ca, M after a CVA. 1 brother A&W, 3 children, 1 with DM 1. Social History: Findings - Lives with his who is his SDM. 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 Never smoked, quit drinking any alcohol with dx of seizures. Never a heavy drinker. Past Medical History: Findings - Seizures Objective Active Medications: Acetaminophen (Tylenol Tab*) 650 mg PO Q4H PRN PRN Reason: PAIN Diphenhydramine HCl (Benadryl Po*) 25 mg PO Q6H PRN PRN Reason: ITCHING Ibuprofen (Motrin Tab*) 400 mg PO Q6H PRN PRN Reason: PAIN Last Admin: 10/04/17 08:48 Dose: 400 mg Loratadine (Claritin Tab(Nf)) 10 mg PO DAILY LANCE Last Admin: 10/07/17 09:05 Dose: 10 mg Lorazepam (Ativan Inj*) 1 mg IV Q8H PRN PRN Reason: Generalized Tonic Clonic Seizu Vital Signs - 8 hr 10/07/17 10/07/17 07:28 08:00 Temperature 97.8 F Pulse Rate 108 Respiratory 18 18 Rate Blood Pressure 129/76 (mmHg) O2 Sat by Pulse 100 Oximetry Oxygen Devices in Use Now: None Appearance: alert, sitting on couch well appearing Eyes: No Scleral Icterus Ears/Nose/Mouth/Throat: NL Teeth, Lips, Gums Neck: NL Appearance and Movements; NL JVP Respiratory: Symmetrical Chest Expansion and Respiratory Effort Skin: No Rash or Ulcers Neurological: Alert and Oriented x 3 Assess/Plan/Problems-Billing Mr. 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 MRI has been unremarkable. Admitted for [facility]ci EEG monitoring for surgical evaluation. - Patient Problems (1) Seizures Current Visit: Yes Status: Acute Code(s): R56.9 - UNSPECIFIED CONVULSIONS SNOMED Code(s): 68111975 Comment: Continue to monitor on EEG; Dr. Rudolph following Holding antiepileptics for now Sleep deprivation tonight to 3 hrs per neuro (2) Allergic rhinitis Current Visit: Yes Status: Acute Code(s): J30.9 - ALLERGIC RHINITIS, UNSPECIFIED SNOMED Code(s): 23787375 Comment: Continue loratadine. (3) DVT prophylaxis Current Visit: Yes Status: Acute Code(s): RRA1414 - SNOMED Code(s): 858409760 Comment: ambulation (4) Full code status Current Visit: Yes Status: Acute Code(s): Z78.9 - OTHER SPECIFIED HEALTH STATUS SNOMED Code(s): 755151099
[2017-10-08] MEDS: CMCS LoraTADine TAB(NF) 10 MG TAB PO SCH (09:18)
--- NOTE | 2017-10-08 11:14 | PN ---
Epilepsy Service Progress Note Date of Service: 10/08/17 - Subjective Patient slept only 2.5 hours last night. Has had several cups of coffee this morning. Remains in good spirits. No typical events. - Medications Active Medications: Acetaminophen (Tylenol Tab*) 650 mg PO Q4H PRN PRN Reason: PAIN Diphenhydramine HCl (Benadryl Po*) 25 mg PO Q6H PRN PRN Reason: ITCHING Ibuprofen (Motrin Tab*) 400 mg PO Q6H PRN PRN Reason: PAIN Last Admin: 10/04/17 08:48 Dose: 400 mg Loratadine (Claritin Tab(Nf)) 10 mg PO DAILY LANCE Last Admin: 10/08/17 09:18 Dose: 10 mg Lorazepam (Ativan Inj*) 1 mg IV Q8H PRN PRN Reason: Generalized Tonic Clonic Seizu EMU Diagnostics - Diagnostic Most Recent Vital Signs: Vital Signs: Temp Pulse Resp BP Pulse Ox 98.5 F 99 16 134/85 99 10/08/17 08:20 10/08/17 08:20 10/08/17 09:01 10/08/17 08:20 10/08/17 08:20 Interim video-EEG long-term monitoring report: #01 10/02: PDR 10. Background shows normal organization. At the beginning of the recording, there was occasional polymorphic slowing in the right frontotemporal region with some sharp contours which were not definitively epileptiform. No discharges, no seizures #02 10/03: Background the same with occasional polymorphic slowing in the right frontotemporal region. During sleep, there are occasional low voltage spikes which are bifrontally predominant but biased to the right and into the right temporal region. Unclear if these are low voltage discharges. There was significant artifact in T3 overnight and T1 came off around 03:30. No seizures #03 10/04: Background same as previously described with occasional low voltage spike waveforms noted during sleep, not clear if epileptiform in nature. No seizures, no patient events. Patient slept about 5.5 to 6 hours. #04 10/05: Background same as previously described with occasional low voltage spike waveforms during sleep, not clear if epileptiform. Occasional polymorphic slowing R temporal. Sleep deprived to 4 hours. #05 10/06: Background same as previously described with occasional low voltage spike waveforms during sleep which are maximal in the bifrontal and right frontotemporal region. No events, no seizures. Nursing noted some myoclonus, did not press button, no EEG correlate. #06 /: Background similar to previously described with small spikes during sleep. Also there was a 3 second epoch of rhythmic sharply contoured delta slowing maximal at FP2, F8 and T2 during sleep. No seizures, no typical events. EMU Exam - Exam Physical/Neurological Exam: Physical Exam: General: Well appearing in no acute distress. MSK: no extremity deformities Derm: no rashes or lesions on visible skin Neurological Exam: Mental Status: Awake and alert. Oriented to person, place, and time. Fluent. Comprehension intact. Affect appropriate. Cranial Nerves: Visual daniels not tested. Spontaneous versions were full and without nystagmus. Facial musculature symmetric. Hearing grossly intact to voice. Shoulder shrug was symmetric. Motor: Strength was grossly normal throughout. Pronator drift was absent. There were no abnormal movements. Sensory: Sensation to LT intact Coordination: Finger to nose intact. Reflexes: not retested Gait: Not observed today. EMU Progress Note Assessment/P - Assessment/Plan Assessment: 52 year old man with onset of probable focal seizures in August 2015, refractory to treatment with carbamazepine followed by Vimpat. MRI is non-lesional. He continues to experience events every 4 to 5 weeks of wide-eyed staring, repetitive swallowing, speaking jibberish and sometimes agitated movements. These are primarily nocturnal. Long-term video EEG undertaken in order to characterize these as epileptic and evaluate for surgical candidacy. No typical events recorded yet. Sleep deprived 10/05-10/06 to 4 hours. Sleep deprived 10/07- to 2.5 hours. 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 Ok to walk around room with nursing present * Plan for discharge Monday 10/09 before noon.
--- NOTE | 2017-10-08 16:18 | PN ---
Subjective Date of Service: 10/08/17 Interval History: No overnight events. No seizure activity observed and no abnormal waveforms on eeg. Mr. Hannah feels tired but otherwise well. No pain, no headache, no weakness, headache, confusion. Family History: Findings - F of esophageal ca, M after a CVA. 1 brother A&W, 3 children, 1 with DM 1. Social History: Findings - Lives with his who is his SDM. 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 Never smoked, quit drinking any alcohol with dx of seizures. Never a heavy drinker. Past Medical History: Findings - Seizures Objective Active Medications: Acetaminophen (Tylenol Tab*) 650 mg PO Q4H PRN PRN Reason: PAIN Diphenhydramine HCl (Benadryl Po*) 25 mg PO Q6H PRN PRN Reason: ITCHING Ibuprofen (Motrin Tab*) 400 mg PO Q6H PRN PRN Reason: PAIN Last Admin: 10/04/17 08:48 Dose: 400 mg Lacosamide (Vimpat Tab*) 250 mg PO DAILY LANCE Lacosamide (Vimpat Tab*) 200 mg PO DAILY LANCE Loratadine (Claritin Tab(Nf)) 10 mg PO DAILY LANCE Last Admin: 10/08/17 09:18 Dose: 10 mg Lorazepam (Ativan Inj*) 1 mg IV Q8H PRN PRN Reason: Generalized Tonic Clonic Seizu Vital Signs - 8 hr 10/08/17 10/08/17 08:20 09:01 Temperature 98.5 F Pulse Rate 99 Respiratory 16 Rate Blood Pressure 134/85 (mmHg) O2 Sat by Pulse 99 Oximetry Oxygen Devices in Use Now: None Appearance: alert, no distress, watching movies Eyes: No Scleral Icterus Ears/Nose/Mouth/Throat: NL Teeth, Lips, Gums Neck: NL Appearance and Movements; NL JVP Respiratory: Symmetrical Chest Expansion and Respiratory Effort, Clear to Auscultation Cardiovascular: NL Sounds; No Murmurs; No JVD, RRR Lymphatic: No Cervical Adenopathy Extremities: No Edema Skin: No Rash or Ulcers Neurological: Alert and Oriented x 3 Assess/Plan/Problems-Billing - Patient Problems (1) Seizures Current Visit: Yes Status: Acute Code(s): R56.9 - UNSPECIFIED CONVULSIONS SNOMED Code(s): 79302066 Comment: Continue to monitor on EEG; Dr. Rudolph following No events recorded Resume vimpat tonight and plan to dc tomorrow (2) Allergic rhinitis Current Visit: Yes Status: Acute Code(s): J30.9 - ALLERGIC RHINITIS, UNSPECIFIED SNOMED Code(s): 72200267 Comment: Continue loratadine. (3) DVT prophylaxis Current Visit: Yes Status: Acute Code(s): [id number] - SNOMED Code(s): 696800798 Comment: ambulation (4) Full code status Current Visit: Yes Status: Acute Code(s): Z78.9 - OTHER SPECIFIED HEALTH STATUS SNOMED Code(s): 890058024
[2017-10-08] MEDS ORDERED: Lacosamide TAB* 50 MG TAB PO SCH (21:00)
[2017-10-09 07:37] VITALS: BP 132/79
[2017-10-09] MEDS ORDERED: Lacosamide TAB* 100 MG TAB PO SCH (09:00)
[2017-10-09] MEDS: CMCS LoraTADine TAB(NF) 10 MG TAB PO SCH (09:12)
--- NOTE | 2017-10-09 11:37 | PN ---
Epilepsy Service Progress Note Date of Service: 10/09/17 - Subjective No events overnight. Vimpat was restarted last night and he is doing well this morning. Discussed adding levetiracetam to his regimen despite not capturing his actual event. - Medications Active Medications: Acetaminophen (Tylenol Tab*) 650 mg PO Q4H PRN PRN Reason: PAIN Diphenhydramine HCl (Benadryl Po*) 25 mg PO Q6H PRN PRN Reason: ITCHING Ibuprofen (Motrin Tab*) 400 mg PO Q6H PRN PRN Reason: PAIN Last Admin: 10/04/17 08:48 Dose: 400 mg Lacosamide (Vimpat Tab*) 250 mg PO DAILY@2100 [facility] Last Admin: 10/08/17 20:56 Dose: 250 mg Lacosamide (Vimpat Tab*) 200 mg PO DAILY [facility] Last Admin: 10/09/17 09:12 Dose: 200 mg Loratadine (Claritin Tab(Nf)) 10 mg PO DAILY [facility] Last Admin: 10/09/17 09:12 Dose: 10 mg Lorazepam (Ativan Inj*) 1 mg IV Q8H PRN PRN Reason: Generalized Tonic Clonic Seizu EMU Diagnostics - Diagnostic Most Recent Vital Signs: Vital Signs: Temp Pulse Resp BP Pulse Ox 98.1 F 81 18 132/79 99 10/08/17 19:55 10/09/17 07:36 10/09/17 09:18 10/09/17 07:36 10/09/17 07:36 Interim video-EEG long-term monitoring report: #01 10/02: PDR 10. Background shows normal organization. At the beginning of the recording, there was occasional polymorphic slowing in the right frontotemporal region with some sharp contours which were not definitively epileptiform. No discharges, no seizures #02 10/03: Background the same with occasional polymorphic slowing in the right frontotemporal region. During sleep, there are occasional low voltage spikes which are bifrontally predominant but biased to the right and into the right temporal region. Unclear if these are low voltage discharges. There was significant artifact in T3 overnight and T1 came off around 03:30. No seizures #03 10/04: Background same as previously described with occasional low voltage spike waveforms noted during sleep, not clear if epileptiform in nature. No seizures, no patient events. Patient slept about 5.5 to 6 hours. #04 /16: Background same as previously described with occasional low voltage spike waveforms during sleep, not clear if epileptiform. Occasional polymorphic slowing R temporal. Sleep deprived to 4 hours. #05 10/06: Background same as previously described with occasional low voltage spike waveforms during sleep which are maximal in the bifrontal and right frontotemporal region. No events, no seizures. Nursing noted some myoclonus, did not press button, no EEG correlate. #06 10/07: Background similar to previously described with small spikes during sleep. Also there was a 3 second epoch of rhythmic sharply contoured delta slowing maximal at FP2, F8 and T2 during sleep. No seizures, no typical events. #07 10/08: Background similar to that previously described, no changes. No seizures, no typical events. EMU Exam - Exam Physical/Neurological Exam: Physical Exam: General: Well appearing in no acute distress. MSK: no extremity deformities Derm: no rashes or lesions on visible skin Neurological Exam: Mental Status: Awake and alert. Oriented to person, place, and time. Fluent. Comprehension intact. Affect appropriate. Cranial Nerves: Visual daniels not tested. Spontaneous versions were full and without nystagmus. Facial musculature symmetric. Hearing grossly intact to voice. Shoulder shrug was symmetric. Motor: Strength was grossly normal throughout. Pronator drift was absent. There were no abnormal movements. Sensory: Sensation to LT intact Coordination: Finger to nose intact. Reflexes: not retested Gait: Narrow-based, stable EMU Progress Note Assessment/P - Assessment/Plan Assessment: 52 year old man with onset of probable focal seizures in August 2015, refractory to treatment with carbamazepine followed by Vimpat. MRI is non-lesional. He continues to experience events every 4 to 5 weeks of wide-eyed staring, repetitive swallowing, speaking jibberish and sometimes agitated movements. These are primarily nocturnal. Long-term video EEG undertaken in order to characterize these as epileptic and evaluate for surgical candidacy. Unfortunately, no typical events recorded. Vimpat restarted last night. Discussed starting levetiracetam in addition to Vimpat and discussed most common side effects of sleepiness and irritability. 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 If still having breakthrough events but tolerating ok as an outpatient , would consider further increasing to 1000mg nightly. Plan: * d/c long term care phlebotomist video EEG monitoring * Vimpat 200mg QAM and 250mg QPM * start levetiracetam ER 500mg nightly. Will ask hospitalist to send script to local pharmacy * They will continue to track events and Jenna will let us know of breakthroughs via fax, as she has been doing. * Follow up will be scheduled with Dr Montalvo for 2 to 3 months. Going forward, will consider having him see me in my [place] [facility] if he remains refractory. We discussed trying to time an ambulatory EEG or another admission for LTM with his usual "cycle" of seizures in the future for characterization/localization.
--- NOTE | 2017-10-10 00:46 | DS ---
CC: Dr. Guerline Rudolph.* DISCHARGE SUMMARY: DATE OF ADMISSION: 10/02/17 DATE OF DISCHARGE: 10/09/17 PRINCIPAL DISCHARGE DIAGNOSIS: Suspected frontal lobe seizures. SECONDARY DISCHARGE DIAGNOSIS: Allergic rhinitis. HOSPITAL COURSE BY PROBLEM: Suspected frontal lobe seizures. Mr. Hannah was admitted to the EMU for long-term observation to attempt to capture a seizure on EEG as he has been having seizure-like activity since March 2015 which has been unable to be captured. He and his report bizarre behaviors that include repetitive swallowing and mouth jerking, crawling over his in bed, and attempting to use a piece of paper like a phone. He failed several outpatient regimens with neurology and therefore was admitted to the EMU to attempt to capture an event and also for consideration and localization of surgery. MRIs have been unremarkable. Unfortunately, he was monitored for 6 days and had no seizure activity and no EEG events despite being off his Vimpat and sleep deprived. He was followed by Dr. Rudolph through this hospitalization and she recommended discharge on after not capturing any events. On 10/08/17 his Vimpat was resumed and at the time of discharge Keppra is being started since he has had poor control on just the Vimpat. He feels well at the time of discharge and has no concerns. He will follow up with Dr. Montalvo in Dr. Rudolph's absence and I have requested that he make a followup appointment in 2 to [address] Rudolph's instructions. [id number]/[facility] #: [id number] ROSIE
== END 2017-10-09 12:06 | disposition home or self-care (01) | DRG 53 ==
LOC: EMU 12:58
PROVIDERS: ADMIT Psychiatry & Neurology Neurology; ATTEND Internal Medicine
PROC: 4A10X4Z Monitoring of Central Nervous Electrical Activity, External Approach (ICD-10-PCS; principal; 2017-10-02)
DX: R56.9 Unspecified convulsions (principal); J30.9 Allergic rhinitis, unspecified; M54.9 Dorsalgia, unspecified; Z82.49 Family history of ischemic heart disease and other diseases of the circulatory system; Z82.3 Family history of stroke; Z80.0 Family history of malignant neoplasm of digestive organs; Z83.3 Family history of diabetes mellitus; Z72.89 Other problems related to lifestyle
CPT/HCPCS: 93005; 95951; A9270-GY; J2060